=== PATIENT | male | born 1960 | race Caucasian/White ===

== ENCOUNTER → 2017-09-27 | Day surgery (SDC) | payer BC ==
[~2017-09-27] MED LIST: Lactated Ringers 1,000 ML IV SCH; Propofol 200 MG/20 ML SDV IV ONE
[2017-09-27 10:54] VITALS: BP 141/80
--- NOTE | 2017-09-27 12:14 | OR ---
DATE OF OPERATION: 09/27/2017 PREOPERATIVE DIAGNOSIS: FOLLOW UP POLYPS. POSTOPERATIVE DIAGNOSIS: FOLLOW UP POLYPS. SURGEON: Claus Bullock MD PROCEDURE: FULL-LENGTH COLONOSCOPY WITH BIOPSY X1. ANESTHESIA: REFRIGERATOR CAR ICER. COMPLICATIONS: None. SPECIMEN: Rectal biopsy x1. FINDINGS: 1. Full-length colonoscopy. 2. Mild diverticulosis, left-sided. 3. 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 RECOMMENDATIONS: Follow up colonoscopy every 10 years. INDICATIONS: The patient had prior polyps removed on a colonoscopy. He is well overdue for a repeat follow up. He elected to proceed. DESCRIPTION OF PROCEDURE: The patient was prepped and draped, placed in left lateral decubitus position. A lubricated Olympus colonoscope was inserted and easily advanced to the cecum where we directly visualized the ileocecal valve and appendiceal orifice. The bowel prep was excellent. A quick look inside the ileocecal valve showed no terminal ileum inflammation. The cecum, ascending, and transverse colon were completely benign. The patient does have scattered diverticula in the whole left colon extending all way up toward the splenic flexure, very mild in severity. No acute inflammatory changes. Throughout the entire left colon, I found no polyps, masses, ulcerations, or bleeding sites. No vascular abnormalities or signs of inflammation. The rectal vault appeared benign. Upon retroflexion, the patient had some perianal proctitis present. We did do one biopsy but this is very nonspecific and more likely prep induced. Air was then suctioned. Scope was removed without complication. YOVANA/ZAYNAB /[id number]
== END ==
LOC: CC.SDS 09:05
PROVIDERS: ATTEND Family Medicine
DX: Z12.11 Encounter for screening for malignant neoplasm of colon (principal); K21.9 Gastro-esophageal reflux disease without esophagitis; K57.30 Diverticulosis of large intestine without perforation or abscess without bleeding; K62.89 Other specified diseases of anus and rectum; E78.00 Pure hypercholesterolemia, unspecified; Z86.010 Personal history of colon polyps; Z85.46 Personal history of malignant neoplasm of prostate; Z91.09 Other allergy status, other than to drugs and biological substances; Z79.899 Other long term (current) drug therapy
CPT/HCPCS: J2704; J7120

== ENCOUNTER 2021-02-14 15:03 | Emergency (ER) | payer BC ==
--- NOTE | 2021-02-14 16:12 | EDM.PDOC ---
ED HPI GENERAL MEDICAL PROBLEM - General Chief Complaint: Lower Extremity Injury/Pain Stated Complaint: RT KNEE HURTING Time Seen by Provider: 02/14/21 15:30 Source of Information: Reports: Patient History Limitations: Reports: No Limitations - History of Present Illness INITIAL COMMENTS - FREE TEXT/NARRATIVE: Bryce is a 60 yo male who presents to the ED with complaints of right knee pain. States the pain is a 7 out of 10. He states he was running this morning down his steps and sisi tripped. States he must have stepped on the ground wrong and now has medial right knee pain. Right Knee Pain Score (Numeric/FACES): 7 - Related Data Allergies Allergy/AdvReac Type Severity Reaction Status Date / Time iodine Allergy Rash Verified 02/14/21 15:15 Home Meds: Home Meds Cholecalciferol (Vitamin D3) [Vitamin D3] 1,000 unit PO DAILY 09/26/17 [History] Fish Oil/[place]-3 Fatty Acids [Fish Oil 1,000 MG] 1 gm PO DAILY 09/26/17 [History] Rosuvastatin Calcium 10 mg PO DAILY 09/26/17 [History] Past Medical History Cardiovascular History: Reports: High Cholesterol - Past Surgical History Male Surgical History: Reports: Prostatectomy Social & Family History - Family History Family Medical History: No Pertinent Family History - Tobacco Use Tobacco Use Status *Q: Never Tobacco User - Caffeine Use Caffeine Use: Reports: None - Recreational Drug Use Recreational Drug Use: No Review of Systems - Review of Systems Review Of Systems: Comprehensive ROS is negative, except as noted in HPI. ED EXAM, GENERAL - Physical Exam Exam: See Below Exam Limited By: No Limitations General Appearance: Alert, No Apparent Distress Extremities: Other (right knee pain along MCL. No deficit noted. Strength appropriate in the right knee. Negative Mary Ellen sign. Negative anterior and posterior drawer. Increased discomfort with valgus stretch. ). No: Limited Range of Motion Psychiatric: Normal Affect, Normal Mood Skin Exam: Warm, Dry, Intact Course - Vital Signs Last Recorded V/S: Last Vital Signs Temp 97.8 F 02/14/21 15:12 Pulse 84 02/14/21 15:12 Resp 18 02/14/21 15:12 BP 174/98 H 02/14/21 15:12 Pulse Ox 97 02/14/21 15:12 - Orders/Labs/Meds Orders: Active Orders 24 hr Category Date Time Status Knee 3V Rt [CR] Stat Exams 02/14/21 15:16 Taken Labs: Laboratory Tests 02/14/21 Range/Units 15:24 Urine Color Yellow (YELLOW) Urine Appearance Clear (CLEAR) Urine pH 5.0 (4.5-8.0) Ur Specific [place] 1.025 H (1.003-1.020) Urine Protein Negative (NEGATIVE) mg/dL Urine Glucose (UA) Negative (NEGATIVE) mg/dL Urine Ketones 15 H (NEGATIVE) mg/dL Urine Occult Blood Negative (NEGATIVE) Urine Nitrite Negative (NEGATIVE) Urine Bilirubin Negative (NEGATIVE) Urine Urobilinogen 0.2 (0.2-1.0) EU/dL Ur Leukocyte Esterase Negative (NEGATIVE) Departure - Departure Time of Disposition: 16:11 Disposition: Home, Self-Care 01 Clinical Impression: Strain of right knee Qualifiers: Encounter type: initial encounter Qualified Code(s): S86.911A - Strain of unspecified muscle(s) and tendon(s) at lower leg level, right leg, initial encounter - Discharge Information *PRESCRIPTION DRUG MONITORING PROGRAM REVIEWED*: No *COPY OF PRESCRIPTION DRUG MONITORING REPORT IN PATIENT MINAL: No Instructions: Knee Sprain, Adult, [id number] Additional Instructions: 1) Recommend RICE therapy. Rest, ice, compression (yamini wrap) and elevation. 2) May use ibuprofen for discomfort, as directed on bottle. May alternate with Tylenol. 3) Follow up in 1 week if no improvement or any concerns Sepsis Event Note (ED) - Evaluation Sepsis Screening Result: No Definite Risk - Focused Exam Vital Signs: Vital Signs Temp Pulse Resp BP Pulse Ox 02/14/21 15:12 97.8 F 84 18 174/98 H 97 - Problem List & Annotations (1) Strain of right knee SNOMED Code(s): 416677742508 Code(s): S86.911A - STRAIN OF UNSP MUSC/TEND AT LOWER LEG LEVEL, RIGHT LEG, INIT Status: Acute Qualifiers: Encounter type: initial encounter Qualified Code(s): S86.911A - Strain of unspecified muscle(s) and tendon(s) at lower leg level, right leg, initial encounter - My Orders Last 24 Hours: My Active Orders 02/14/21 15:16 Knee 3V Rt [CR] Stat - Assessment/Plan Last 24 Hours: My Active Orders 02/14/21 15:16 Knee 3V Rt [CR] Stat Plan: X-ray of the right knee showed no acute findings. Chronic loose body noted. Pain is along MCL. Yamini wrap applied with noticeable relief upon ambulation. See additional instructions.
== END 2021-02-14 16:20 | disposition home or self-care (01) ==
LOC: CC.ED 15:03
DX: S86.911A Strain of unspecified muscle(s) and tendon(s) at lower leg level, right leg, initial encounter (principal); E78.00 Pure hypercholesterolemia, unspecified; Z79.899 Other long term (current) drug therapy; Z88.8 Allergy status to other drugs, medicaments and biological substances; W18.41XA Slipping, tripping and stumbling without falling due to stepping on object, initial encounter
CPT/HCPCS: 73562-RT; 81003; 99283-25

== ENCOUNTER 2025-02-25 16:29 | Observation (INO) | payer BC ==
[2025-02-25] MEDS ORDERED: Sodium Chloride 0.9% 10 ML Syringe FLUSH PRN (17:04)
[2025-02-25] MEDS ORDERED: Ondansetron 4 MG Tab.DIS PO PRN (17:04)
[2025-02-25] MEDS ORDERED: Ondansetron 4 MG/2 ML SDV IV PRN (17:04)
[2025-02-26 08:09] LABS: BASOPHILS ABSOLUTE AUTO 0.07 10^3/uL (0.00-0.50); BASOPHILS PERCENT AUTO 1.0 % (0-1); EOSINOPHILS ABSOLUTE AUTO 0.37 10^3/uL (0.00-1.50); EOSINOPHILS PERCENT AUTO 5.3 % (0-6); IMMATURE GRAN ABSOLUTE AUTO 0.01 10^3/uL (0.00-0.49); IMMATURE GRAN PERCENT AUTO 0.1 % (0.0-4.9); LYMPHOCYTES ABSOLUTE AUTO 1.30 10^3/uL (0.60-5.00); LYMPHOCYTES PERCENT AUTO 18.6 % (24-44); MONOCYTES ABSOLUTE AUTO 0.55 10^3/uL (0.00-1.50); MONOCYTES PERCENT AUTO 7.9 % (0-10); NEUTROPHILS ABSOLUTE AUTO 4.70 x10^3/uL (1.80-8.00); NEUTROPHILS PERCENT AUTO 67.1 % (41-71); PLATELET COUNT,PLT 244 10^3/uL (150-400); RED BLOOD CELL COUNT 4.60 x10^6/uL (4.50-6.00); WHITE BLOOD CELL COUNT,WBC 7.0 10^3/uL (4.0-11.0)
[2025-02-26 08:12] LABS: ALANINE AMINOTRANSFERASE,ALT 27.0 U/L (12-78); ASPARTATE AMNIOTRANSFERASE,AST 15.0 U/L (15-37); BILIRUBIN TOTAL 0.3 mg/dL (0.0-1.0); BLOOD UREA NITROGEN,BUN 19.0 mg/dL (7-18); CARBON DIOXIDE,CO2 24.0 mmol/L (21-32); CHLORIDE,CL 105.0 mEq/L (98-106); CREATININE 1.5 mg/dL (0.7-1.3); EST CRCL DRUG DOSING (CG) 38.99 mL/min; GLUCOSE RANDOM 137.0 mg/dL (75-99); POTASSIUM,K 4.6 mEq/L (3.5-5.0); PROTEIN TOTAL,TP 6.7 g/dL (6.4-8.2); SODIUM,NA 136.0 mEq/L (136-145)
[2025-02-26] MEDS: Lactobacillus Rhamnosus GG (Probiotic) Cap PO SCH (08:18)
[2025-02-26 08:25] LABS: ESTIMATED GFR 51.0 mL/min (>=60)
== END 2025-02-26 14:00 | disposition home or self-care (01) ==
LOC: UNDOADMOB 16:29 → CC.MS 16:29
PROVIDERS: ADMIT Nurse Practitioner Family; ATTEND Nurse Practitioner Family
DX: N30.01 Acute cystitis with hematuria (principal); E87.1 Hypo-osmolality and hyponatremia; R53.83 Other fatigue; Z91.048 Other nonmedicinal substance allergy status; Z79.899 Other long term (current) drug therapy
CPT/HCPCS: 36415; 80053; 85025; 86140; 99223; 99238; A9270-GY; J0696; J7030